=== PATIENT | female | born 1995 | race Caucasian/White ===

== ENCOUNTER 2020-07-20 01:18 | Emergency (ER) | payer BC ==
[~2020-07-20] VITALS: Ht 167.6 cm; Wt 59.3 kg
[2020-07-20 01:20] VITALS: BP 137/77
--- NOTE | 2020-07-20 01:45 | NUR ---
PT TO IMAGING.
--- NOTE | 2020-07-20 01:56 | NUR ---
PT LAYING IN BED, LEG ELEVATED, ICE APPLIED, ALL NEEDS MET AT THIS TIME.
--- NOTE | 2020-07-20 02:05 | NUR ---
PT COMPLAINED OF INTERMITENT CP X1.5 MONTHS "I DIDN'T WANT TO COME IN FOR IT." CURRENTLY DENYING CP. PT STATES SHE FEELS IT AFTER SHE EATS. PT PLACED ON [employer], AND EKG DONE.
== END 2020-07-20 03:23 | disposition home or self-care (01) ==
LOC: ED 02:07
DX: S83.512A Sprain of anterior cruciate ligament of left knee, initial encounter (principal); G89.11 Acute pain due to trauma; X58.XXXA Exposure to other specified factors, initial encounter; Y93.89 Activity, other specified; Y92.89 Other specified places as the place of occurrence of the external cause; Y99.8 Other external cause status
CPT/HCPCS: 29505; 93005; 99283